=== PATIENT | female | born 1995 | race Two or more races ===

== ENCOUNTER 2018-08-27 18:35 | Emergency (ER) | payer OTHER ==
[~2018-08-27] VITALS: Ht 167.6 cm; Wt 70.8 kg
--- NOTE | 2018-08-27 18:46 | ED.ADGEN ---
Adult General Chief Complaint Chief Complaint ".. I twisted my foot and ankle.. and it is still brother .. ing me... " HPI HPI Patient is a 23 year old female who presents with above hx and complaint Rt ankle and foot sprain. Patient has obvious swelling of the ankle and foot. Has a positive foot squeeze. Some laxity on anterior drawer of ankle. Medial malleolus is tender to percussion. No upper leg tenderness. Distal neurovascular intact. No other injuries reported. Normally healthy. No history immunosuppression. No history of travel. Review of Systems Review of Systems Constitutional: Denies fever or chills [] Eyes: Denies change in visual acuity, redness, or eye pain [] HENT: Denies nasal congestion or sore throat [] Respiratory: Denies cough or shortness of breath [] Cardiovascular: No additional information not addressed in HPI [] GI: Denies abdominal pain, nausea, vomiting, bloody stools or diarrhea [] : Denies dysuria or hematuria [] Musculoskeletal: Denies back pain or joint pain []except complaints of right foot ankle and foot sprain Integument: Denies rash or skin lesions [] Neurologic: Denies headache, focal weakness or sensory changes [] Endocrine: Denies polyuria or polydipsia [] All other systems were reviewed and found to be within normal limits, except as documented in this note. Family History Family History Noncontributory Current Medications Current Medications Current Medications Medications (Trade) Dose Ordered Sig/Stephanie Start Time Stop Time Status Last Admin Dose Admin Hydrocodone Bitartrate/ Ibuprofen (Vicoprofen 7.5-200) 2 tab 1X ONCE 08/27/18 19:30 08/27/18 19:31 DC 08/27/18 19:42 2 TAB Allergies Allergies Allergies Coded Allergies Type Severity Reaction Last Updated Verified Penicillins Allergy Severe 08/27/18 Yes Physical Exam Physical Exam Constitutional: Well developed, well nourished, moderately acute distress, non- toxic appearance. [] HENT: Normocephalic, atraumatic, bilateral external ears normal, oropharynx moist, no oral exudates, nose normal. [] Eyes: PERRLA, EOMI, conjunctiva normal, no discharge. [] Neck: Normal range of motion, no tenderness, supple, no stridor. [] Cardiovascular:Heart rate regular rhythm, no murmur [] Lungs & Thorax: Bilateral breath sounds clear to auscultation [] Abdomen: Bowel sounds normal, soft, no tenderness, no masses, no pulsatile masses. [] Skin: Warm, dry, no erythema, no rash. [] Back: No tenderness, no CVA tenderness. [] Extremities: No tenderness, no cyanosis, no clubbing, ROM intact, no edema. [] Findings in right foot and ankle as per history of present illness Neurologic: Alert and oriented X 3, normal motor function, normal sensory function, no focal deficits noted. [] Psychologic: Affect anxious, judgement normal, mood normal. [] Current Patient Data Vital Signs Vital Signs Date Time Temp Pulse Resp B/P (MAP) Pulse Ox O2 Delivery O2 Flow Rate FiO2 08/27/18 20:30 75 18 114/70 (85) 97 Room Air 08/27/18 18:35 98.5 EKG EKG [] Radiology/Procedures Radiology/Procedures My interpretation of x-ray shows no dislocation or displacement fracture. Does have soft tissue edema. See formal report when available[] Course & Med Decision Making Course & Med Decision Making Pertinent Labs and Imaging studies reviewed. (See chart for details). Ice, splint, elevation, and take Tylenol and ibuprofen for pain. Follow-up primary care. Return if any concerns. [] Final Impression Final Impression 1. Foot sprain and right ankle sprain[] Dragon Disclaimer Dragon Disclaimer This electronic medical record was generated, in whole or in part, using a voice recognition dictation system. Discharge Summary Visit Information Final Diagnosis Problems Medical Problems: (1) Ankle sprain Status: Acute (2) Injury, foot Status: Acute Brief Hospital Course Allergies Allergies Coded Allergies Type Severity Reaction Last Updated Verified Penicillins Allergy Severe 08/27/18 Yes Vital Signs Vital Signs Date Time Temp Pulse Resp B/P (MAP) Pulse Ox O2 Delivery O2 Flow Rate FiO2 08/27/18 20:30 75 18 114/70 (85) 97 Room Air 08/27/18 18:35 98.5 Brief Hospital Course Ms. Villa is a 23 old female who presented with Rt ankle and foot sprain. Discharge Information Condition at Discharge: Improved Disposition/Orders: D/C to Home Dischare Medications Current Medications Hydrocodone Bitartrate/ Ibuprofen (Vicoprofen 7.5-200) 2 tab 1X ONCE PO Last administered on 08/27/18at 19:42; Admin Dose 2 TAB; Start 08/27/18 at 19:30; Stop 08/27/18 at 19:31; Status DC Active Scripts Active Hydrocodone-Ibuprofen 7.5-200 (Hydrocodone/Ibuprofen) 1 Each Tablet 1 Tab PO PRN Q6HRS PRN Dragon Disclaimer This chart was dictated in whole or in part using Voice Recognition software in a busy, high-work load, and often noisy Emergency Department environment. It may contain unintended and wholly unrecognized errors or omissions. THO RUANO MD Aug 27, 2018 18:46
[2018-08-27] MEDS ORDERED: HYDR-1179 PO (19:04)
[2018-08-27] MEDS ORDERED: HYDROcodon/IBUPROFEN 7.5/200MG 1 TAB TABLET PO ONE (19:30)
[2018-08-27 20:30] VITALS: BP 114/70
--- NOTE | 2018-08-28 02:01 | RAD ---
Right ankle 3 views: Reason for examination: Twisted ankle. No fracture or dislocation is seen. The bone density is normal. No abnormal periosteal reaction is seen. Joint spaces are maintained. Note is made of some mild soft tissue fullness over the lateral malleolus. IMPRESSION: Mild soft tissue fullness over the lateral malleolus. No acute bony abnormality seen at the right ankle. Electronically signed by: Elena May MD (08/28/2018 1:58 AM) [id number]
== END 2018-08-27 20:30 | disposition home or self-care (01) ==
LOC: ER 18:35
DX: S93.601A Unspecified sprain of right foot, initial encounter (principal); S93.401A Sprain of unspecified ligament of right ankle, initial encounter; Z88.5 Allergy status to narcotic agent; X50.1XXA Overexertion from prolonged static or awkward postures, initial encounter; Y93.89 Activity, other specified; Y92.89 Other specified places as the place of occurrence of the external cause; Y99.8 Other external cause status
CPT/HCPCS: 29515; 73610; 99284